=== PATIENT | male | born 1995 | race American Indian/Alaskan Native ===

== ENCOUNTER 2018-02-20 03:23 | Emergency (ER) | payer MEDICARE ==
--- NOTE | 2018-02-20 07:19 | Emergency Department Report ---
[facility] Chief Complaint: Eye Problems Stated Complaint: LT EYE IRRITATION Time Seen by Provider: 02/20/18 07:12 Duration: 10 PM last night Side: Left Severity: severe (7/10 severity of itching) Symptoms: Yes Eye Itching (left eye), Yes Eye Redness (left eye), Yes Purulent Drainage (left eye), No Eye Pain, No Mucous Drainage, No Blurred Vision, No Preceding URI, No H/O Allergic Rhinitis, No Contact Lens Use, No Trauma, No Fever, No Headache Other History: Patient presents to the emergency room this morning complaining of left eye pain that started at 10 PM last night. Denies any injury. He reports that is eyes red, burning in and itching. He reports mucus drainage from eye. Denies any injury. Patient reported that he was wearing contacts earlier but took them out. ED Review of Systems ROS: Stated complaint: LT EYE IRRITATION Other details as noted in HPI ED Past Medical Hx - Past Medical History Previous Medical History?: No - Surgical History Past Surgical History?: No - Social History Smoking Status: Never Smoker Substance Use Type: None [facility] Exam - Exam General: Vital signs noted. No distress. Alert and acting appropriately. ED Course Vital Signs 02/20/18 03:25 Temperature 98.2 F Pulse Rate 66 Respiratory 18 Rate Blood Pressure 128/75 O2 Sat by Pulse 99 Oximetry Critical care attestation.: If time is entered above; I have spent that time in minutes in the direct care of this critically ill patient, excluding procedure time. ED Disposition Condition: Stable Referrals: PRIMARY CARE, [Primary Care Provider] - 3-5 Days
[2018-02-20] MEDS ORDERED: FUL-GLO OP ONE (08:24)
[2018-02-20] MEDS ORDERED: TETRACAINE 0.5% OS ONE (08:25)
[2018-02-20] MEDS ORDERED: BOOSTRIX IM ONE (08:26)
--- NOTE | 2018-02-20 09:03 | Emergency Department Report ---
ED Eye Problem HPI - General Chief complaint: Eye Problems Stated complaint: LT EYE IRRITATION Time Seen by Provider: 02/20/18 07:12 Source: patient, family Mode of arrival: Ambulatory Limitations: No Limitations - History of Present Illness Initial comments: 22-year-old male presents to emergency room with left eye burning pain after using contacts. He said he took his contacts out and he developed redness with foreign body sensation and burning pain 7 out of 10. Nothing makes pain better and pain is worse with blinking and exposure to light. Denies wearing glasses. Contacts are for cosmetics purposes. Denies taking any medication and he said he took contacts out. This happened last night. chief complaint: eye pain, eye redness, foreign body -: Last night Onset Description: sudden Location: left eye Place: home If Injury: other (contact) Eye Symptoms: burning, redness, pain, foreign body sensation, itching, photophobia Severity: severe Severity scale (0 -10): 7 If Pain, Quality: burning Consistency: constant Context: contact lens use Associated Symptoms: denies: headache, neck pain, nausea/vomiting, cough, rhinorrhea, fever, shortness of breath Treatments Prior to Arrival: none - Related Data Patient Tetanus UTD: No Previous Rx's Medication Instructions Recorded Last Taken Type Acetaminophen/Codeine [Tylenol 1 tab PO Q6H PRN #12 tab 02/20/18 Unknown Rx /Codeine # 3 tab] Gentamicin 0.3% Ophth Soln 2 drops OP Q8H 10 Days #1 bottle 02/20/18 Unknown Rx Ibuprofen [Motrin] 600 mg PO Q8H PRN #12 tablet 02/20/18 Unknown Rx Allergies Allergy/AdvReac Type Severity Reaction Status Date / Time No Known Allergies Allergy Verified 02/20/18 03:30 ED Review of Systems ROS: Stated complaint: LT EYE IRRITATION Other details as noted in HPI Constitutional: denies: chills, fever Eyes: eye discharge (watery drainage from eye), other (left eye irritation, redness and sensitivity to light). denies: eye pain ENT: denies: ear pain, throat pain, dental pain, congestion Respiratory: denies: cough, shortness of breath, wheezing Cardiovascular: denies: chest pain, palpitations Gastrointestinal: denies: nausea, vomiting Musculoskeletal: denies: back pain, joint swelling, arthralgia, myalgia Skin: denies: rash, lesions Neurological: denies: headache, weakness, paresthesias, abnormal gait, vertigo ED Past Medical Hx - Past Medical History Previous Medical History?: No - Surgical History Past Surgical History?: No - Family History Family history: no significant - Social History Smoking Status: Never Smoker Substance Use Type: None Other Social History: Patient is single and lives alone - Medications Home Medications: Home Medications Medication Instructions Recorded Confirmed Last Taken Type Acetaminophen/Codeine [Tylenol 1 tab PO Q6H PRN #12 tab 02/20/18 Unknown Rx /Codeine # 3 tab] Gentamicin 0.3% Ophth Soln 2 drops OP Q8H 10 Days #1 bottle 02/20/18 Unknown Rx Ibuprofen [Motrin] 600 mg PO Q8H PRN #12 tablet 02/20/18 Unknown Rx ED Physical Exam - General Limitations: No Limitations General appearance: alert, in no apparent distress - Head Head exam: Present: atraumatic, normocephalic, normal inspection, other (normal exam) - Eye Eye exam: Present: PERRL, EOMI, conjunctival injection. Absent: normal appearance, scleral icterus, nystagmus, periorbital swelling, periorbital tenderness Pupils: Present: normal accommodation - Expanded Eye Exam Expanded Eyelids: Normal Inspection: Right (lateral) Pupils: Regular, Round: Bilateral, Reactive: Bilateral Sclera/Conjunctival: Normal Inspection: Right, Injection: Left (with when tearing) Anterior chamber: Normal Inspection: Bilateral Posterior chamber: Normal Inspection: Bilateral Visual acuity (R) = 20/: 25 (20/10 both eyes) Visual acuity (L) = 20/: 70 With correction: No - ENT ENT exam: Present: normal exam, normal orophraynx, mucous membranes moist, TM's normal bilaterally, normal external ear exam, other (Nasal mucosa normal,) - Neck Neck exam: Present: normal inspection, tenderness, full ROM, other (no C-spine tenderness). Absent: lymphadenopathy - Respiratory Respiratory exam: Present: normal lung sounds bilaterally. Absent: respiratory distress, chest wall tenderness - Cardiovascular Cardiovascular Exam: Present: regular rate, normal rhythm, normal heart sounds. Absent: systolic murmur, diastolic murmur - GI/Abdominal GI/Abdominal exam: Present: soft, normal bowel sounds. Absent: tenderness - Extremities Exam Extremities exam: Present: normal inspection, full ROM, normal capillary refill , other (no clubbing, cyanosis or edema. +2 pulses to extremities and no neurovascular compromise). Absent: tenderness, pedal edema, joint swelling - Neurological Exam Neurological exam: Present: alert, oriented X3, normal gait - Psychiatric Psychiatric exam: Present: normal affect, normal mood - Skin Skin exam: Present: warm, dry, intact, normal color. Absent: rash ED Course Vital Signs 02/20/18 03:25 Temperature 98.2 F Pulse Rate 66 Respiratory 18 Rate Blood Pressure 128/75 O2 Sat by Pulse 99 Oximetry - Reevaluation(s) Reevaluation #1: 02/20/18 09:14 Patient with some testing that showed small left corneal abrasion. Please see procedure note for details. Patient to receive Motrin 800 mg by mouth. Tetracaine eyedrops instilled and pain relieved. - Procedure Description Procedures done: Left eye procedure: Left eye examined under [place] lamp prior to examination tetracaine eyedrop 2 drops instilled in left eye, followed by fluorescein stain and and under [place] lamp noted very small corneal abrasion. Positive photophobia. I flushed with irrigation solution after procedure completed and patient tolerated procedure well. ED Medical Decision Making - Medical Decision Making ED Course: DX 1: Left corneal abrasion secondary to contact lens 2: Left eye pain -[place] lamp testing refer to procedure note for details -Patient controlled achieved with tetracaine eyedrop and Motrin 800 mg by mouth in the emergency room. -Boostrix0.5 mL IM to update tetanus -Referral to ophthalmology -Visual acuity done. See notes for detail -Instructed to stop wearing contacts: these were for cosmetics reason - Wear sunglasses to prevent Photophobia Patient will be discussed below home with gentamicin ophthalmic, Motrin and Tylenol 3 Patient treated in emergency room for corneal abrasion and he was given information and diagnosis, treatment plan and I instructed him to avoid wearing contacts for 10 days until corneal abrasion is resolved. Contact lenses are for cosmetic purposes. He understands he needs to follow-up with ophthalmology and patient discharged from ED in stable condition with prescription for Motrin , Tylenol No. 3 and gentamicin ophthalmic. Critical care attestation.: If time is entered above; I have spent that time in minutes in the direct care of this critically ill patient, excluding procedure time. ED Disposition Clinical Impression: Left eye pain Corneal abrasion, left Qualifiers: Encounter type: initial encounter Qualified Code(s): S05.02XA - Injury of conjunctiva and corneal abrasion without foreign body, left eye, initial encounter Disposition: DC-01 TO HOME OR SELFCARE Is pt being admited?: No Does the pt Need Aspirin: No Condition: Stable Instructions: Eye Pain (ED), Corneal Abrasion (ED) Additional Instructions: Avoid wearing contact lenses as discussed. Follow up with press assistant for evaluation of corneal abrasion Instilled gentamicin ophthalmic eyedrops as instructed Take Motrin for mild to moderate pain Take Tylenol 3 for moderate to severe pain. These avoid driving or operating heavy machinery while taking this medication as it causes drowsiness Wear sunglasses to prevent photophobia. Prescriptions: Acetaminophen/Codeine [Tylenol /Codeine # 3 tab] 1 tab PO Q6H PRN #12 tab PRN Reason: moderate to severe pain Gentamicin 0.3% Ophth Soln 2 drops OP Q8H 10 Days #1 bottle Ibuprofen [Motrin] 600 mg PO Q8H PRN #12 tablet PRN Reason: mild to moderate pain Referrals: PRIMARY CAREMD [Primary Care Provider] - 2-3 Days [facility] [Outside] - 2-3 Days BOGDAN ALAN MD [Staff Physician] - 24 Hours Forms: Accompanied Note, Work/School Release Form(ED)
[2018-02-20] MEDS ORDERED: MOTRIN PO ONE (09:14)
[2018-02-20 09:20] VITALS: BP 122/82
== END 2018-02-20 09:32 | disposition home or self-care (01) ==
LOC: ED 03:23
DX: S05.02XA Injury of conjunctiva and corneal abrasion without foreign body, left eye, initial encounter (principal); X58.XXXA Exposure to other specified factors, initial encounter; Y93.89 Activity, other specified; Y92.89 Other specified places as the place of occurrence of the external cause; Y99.8 Other external cause status
CPT/HCPCS: 90471; 90715